=== PATIENT | male | born 1935 | race Caucasian/White ===

== ENCOUNTER 2023-10-15 13:06 | Emergency (ER) | payer OTHER, MEDICARE ==
[~2023-10-15] VITALS: Ht 172.7 cm; Wt 73.9 kg
[~2023-10-15 13:06] MED LIST: ALBU1.256 NEB; AMLO10TA13 PO; BUDE10.2 INH; CETI10TA19 PO; FLO0.4C PO; FLUT16SP13 BOTHNARES; HYDR25TA5 PO; LISI20TA28 PO; PRED10TA23 PO; PRED20TA PO; TIOT18CA3 PO
[2023-10-15 13:38] LABS: MEAN PLATELET VOLUME 7.5 FL (7.4-10.4)
[2023-10-15 13:40] LABS: BASOPHILS # (AUTO) 0.1 X10'3 (0-0.2); BASOPHILS % (AUTO) 0.2 % (0-1); EOSINOPHILS % (AUTO) 0.1 % (0-6); HEMATOCRIT 49.3 % (42.0-52.0); HEMOGLOBIN 16.1 g/dl (14.0-17.9); LYMPHOCYTES # (AUTO) 0.8 X10'3 (1.1-4.8); LYMPHOCYTES % (AUTO) 3.2 % (21-51); MEAN CORPUSCULAR HEMOGLOBIN 29.6 PG (27.0-31.0); MEAN CORPUSCULAR HGB CONC 32.6 g/dL (33.0-36.5); MEAN CORPUSCULAR VOLUME 90.9 FL (78-98); MONOCYTES # (AUTO) 1.9 X10'3 (0-0.9); MONOCYTES % (AUTO) 7.2 % (2-12); NEUTROPHILS % (AUTO) 89.3 % (42-75); PLATELET COUNT 220 X10'3 (140-440); RED BLOOD COUNT 5.42 X10'6 (4.70-6.10); RED CELL DISTRIBUTION WIDTH 15.3 % (11.5-14.5)
[2023-10-15 13:51] LABS: WHITE BLOOD COUNT 25.8 X10'3 (4.5-11.0)
[2023-10-15 13:52] LABS: ALANINE AMINOTRANSFERASE 44 U/L (12-78); ALBUMIN/GLOBULIN RATIO 0.8 (1.1-1.5); ALKALINE PHOSPHATASE 58 IU/L (46-116); ANION GAP 8 (8-16); ASPARTATE AMINO TRANSFERASE 41 U/L (10-37); BILIRUBIN,TOTAL 0.9 MG/DL (0.1-1.0); BLOOD UREA NITROGEN 18 MG/DL (7-18); BUN/CREATININE RATIO 14.4 (10.0-20.0); CALCIUM 8.8 MG/DL (8.5-10.1); CHLORIDE 105 MMOL/L (99-107); CREATININE 1.25 MG/DL (0.60-1.10); GLUCOSE 134 MG/DL (70-104); POTASSIUM 4.3 MMOL/L (3.5-5.1); SODIUM 141 MMOL/L (135-145); TOTAL CARBON DIOXIDE 28.1 MMOL/L (24-32); TOTAL PROTEIN 6.7 G/DL (6.4-8.2); eCRCL 41 ML/MIN; eGFR 55 ML/MIN
[2023-10-15 13:58] LABS: PRO BRAIN NATRIURETIC PEPTIDE 798 PG/ML (0-450)
[2023-10-15] MEDS: azithromycin 250mg tablet PO ONE (14:15)
[2023-10-15 14:17] LABS: PLATELET ESTIMATE NORMAL; TOTAL CELLS COUNTED 100
[2023-10-15] MEDS ORDERED: AZIT-164 PO (14:39)
[2023-10-15 14:56] VITALS: BP 137/87; PULSE 71; RESP 14; TEMP 98.6; O2SAT 94
== END 2023-10-15 15:11 | disposition home or self-care (01) ==
LOC: ER 13:07
DX: J16.8 Pneumonia due to other specified infectious organisms (principal); E78.00 Pure hypercholesterolemia, unspecified; I10 Essential (primary) hypertension; J44.9 Chronic obstructive pulmonary disease, unspecified; G89.29 Other chronic pain; M54.9 Dorsalgia, unspecified; Z79.899 Other long term (current) drug therapy; Z79.51 Long term (current) use of inhaled steroids; Z79.52 Long term (current) use of systemic steroids; Z72.89 Other problems related to lifestyle; Z98.890 Other specified postprocedural states; Z85.038 Personal history of other malignant neoplasm of large intestine
CPT/HCPCS: 36415; 71045; 80053; 83880; 84484; 85007; 85025; 93005; 99285